=== PATIENT | female | born 1965 | race Caucasian/White ===

== ENCOUNTER 2018-05-08 13:52 | Day surgery (SDC) | payer BC ==
[2018-05-08] VITALS (10 sets, daily range): BP systolic 109–148; BP diastolic 54–83; PULSE 59–90; TEMP 98.2–99
[~2018-05-08] VITALS: Ht 162.6 cm; Wt 89.0 kg
[~2018-05-08 13:52] MED LIST changes: -ALLEGRA 180MG180 MG PO; -COZAAR100 MG PO; -NORCO 325 MG-51 TAB PO; -SUDAFED 24-HOU240 MG PO
[2018-05-08] MEDS ORDERED: COZAAR100 MG PO (14:22)
[2018-05-08] MEDS ORDERED: SUDAFED 24-HOU240 MG PO (14:23)
[2018-05-08] MEDS ORDERED: ALLEGRA 180MG180 MG PO (14:24)
[2018-05-09 01:30] VITALS: BP 113/59; PULSE 56; TEMP 98.8
[2018-05-09 07:30] VITALS: BP 92/62; PULSE 67; TEMP 97.6
[2018-05-09] MEDS ORDERED: NORCO 325 MG-51 TAB PO (08:34)
== END 2018-05-09 10:05 | disposition home or self-care (01) ==
LOC: SDCO 13:52 → OB 17:00 → SDCO 05-09 10:05
DX: K81.2 Acute cholecystitis with chronic cholecystitis (principal); I10 Essential (primary) hypertension; E66.9 Obesity, unspecified; K21.9 Gastro-esophageal reflux disease without esophagitis; Z68.34 Body mass index [BMI] 34.0-34.9, adult; Z79.899 Other long term (current) drug therapy
CPT/HCPCS: OP; J0690; J1100; J1720; J2405; J2704; J2710; J2765; J3010; J7120

== ENCOUNTER → 2018-05-08 | Outpatient (CLI) | payer BC ==
[~2018-05-08] MED LIST: ADVIL200 MG PO; ALLEGRA 180MG180 MG PO; BYSTOLIC10 MG PO; COZAAR100 MG PO; NORCO 325 MG-51 TAB PO; SUDAFED 24-HOU240 MG PO; VESICARE 5MG5 MG PO
== END ==
LOC: COL.RAD 11:51
DX: K80.20 Calculus of gallbladder without cholecystitis without obstruction (principal); K83.9 Disease of biliary tract, unspecified

== ENCOUNTER → 2018-05-08 | Outpatient (CLI) | payer BC ==
[2018-05-08 11:35] LABS: AMYLASE 83 U/L (30-110); LIPASE 201 U/L (23-300)
== END ==
LOC: ZCOL.LAB 11:23
PROVIDERS: Family Medicine
DX: R10.9 Unspecified abdominal pain (principal)

== ENCOUNTER 2018-08-30 08:45 | Outpatient (RCR) | payer BC ==
[~2018-08-30 08:45] MED LIST changes: +ALLEGRA 180MG180 MG PO; +COZAAR100 MG PO; +NORCO 325 MG-51 TAB PO; +SUDAFED 24-HOU240 MG PO
== END 2018-09-07 10:26 | disposition home or self-care (01) ==
LOC: WSC 08:45
DX: M47.26 Other spondylosis with radiculopathy, lumbar region (principal)

== ENCOUNTER → 2019-02-21 | Outpatient (CLI) | payer BC | LOC: MC.RAD 07:09 | DX: Z12.31 Encounter for screening mammogram for malignant neoplasm of breast (principal) ==

== ENCOUNTER → 2020-04-06 | Outpatient (CLI) | payer BC | LOC: MC.RAD 06:59 | DX: Z12.31 Encounter for screening mammogram for malignant neoplasm of breast (principal) ==

== ENCOUNTER → 2021-07-12 | Outpatient (CLI) | payer BC | LOC: MC.RAD 07:08 | DX: Z12.31 Encounter for screening mammogram for malignant neoplasm of breast (principal) ==

== ENCOUNTER → 2022-07-13 | Outpatient (CLI) | payer BC | LOC: MC.RAD 06:50 | DX: Z12.31 Encounter for screening mammogram for malignant neoplasm of breast (principal) ==

== ENCOUNTER → 2023-08-04 | Outpatient (CLI) | payer BC | LOC: CANSCHCLI → MC.RAD 07:49 | DX: Z12.31 Encounter for screening mammogram for malignant neoplasm of breast (principal) ==